=== PATIENT | male | born 2000 | race Caucasian/White ===

== ENCOUNTER 2022-08-03 19:41 | Emergency (ER) | payer OTHER ==
[2022-08-03] MEDS ORDERED: Dicyclomine 20 MG TAB ONE (20:08)
[2022-08-03] MEDS ORDERED: Famotidine/PF 20 mg/2ml Vial ONE (20:08)
[2022-08-03] MEDS ORDERED: Ondansetron PF 4 MG/2 ML Vial ONE (20:08)
== END 2022-08-03 22:11 | disposition home or self-care (01) ==
LOC: ERS 19:41
DX: R11.2 Nausea with vomiting, unspecified (principal); E86.0 Dehydration; R19.7 Diarrhea, unspecified
CPT/HCPCS: 96374; 96375; J2405; S0028